=== PATIENT | male | born 1950 | race Caucasian/White ===

== ENCOUNTER 2017-10-18 08:28 | Emergency (ER) | payer OTHER, MEDICARE ==
[2017-10-18 08:38] VITALS: BP 131/85; PULSE 75; TEMP 98.2; BMI 32.9
--- NOTE | 2017-10-18 08:46 | PDOC ---
History of Present Illness - General Chief Complaint: Shortness of Breath Stated Complaint: SOB R/O PE Time Seen by Provider: 10/18/17 08:33 - History of Present Illness Initial Comments: 10/18/17 08:47 Chief complaint: Shortness of breath History of present illness: Patient complains of increased dyspnea on exertion over the past month. He is a patient of Dr. Stark, who referred him to the ER today for further evaluation after assessing his cardiac status is stable. He is concerned about an occult pulmonary embolus. Review of systems: Denies chest pain, abdominal pain, nausea, vomiting, diarrhea , fever/chills, cough, calf pain or swelling. Admits chronic hematuria from known renal carcinoma. Past medical history: Coronary artery disease, stents in 2008 and May 2017. Ablation for SVT subsequent to recent stent No prior DVT or pulmonary embolus. Probable renal cell carcinoma with hematuria, awaiting surgical treatment. Cannot undergo surgery until Plavix and aspirin can be discontinued 6 months after stent placement. Under the care of a urologist. Borderline diabetes. No known [place], CVA, TIA in the past. No recent angina or other chest pain. 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 Stable home and family Family history: Mother of CHF, father of lung cancer after smoking most of his life. 2 siblings without cardiac disease, cancer, or blood clots. Physical exam: Alert and oriented, well-developed well-nourished, no acute distress, cheerful and cooperative Afebrile, vital signs stable including normal respiratory rate and oxygen saturation of 98% on room air PERRLA, fundi benign, ENT clear Neck supple without bruit mass or nodes Lungs clear with full breath sounds throughout bilaterally. No wheezes rales or rhonchi CV S1 and S2 distant without murmur rub or gallop pulses full and symmetric no JVD or edema no bruits 80 and regular Abdomen soft nontender without mass or organomegaly. No bruits Extremities no CCE Skin clear, no rash, adequate turgor and wet mucous membranes Neurological intact. Gait stable and unimpaired Impression: Increased dyspnea on exertion, no chest pain, recent stent. Unlikely stent occlusion. Possible mild CHF. Possible pulmonary embolus. Plan: As requested by tar processing technician, CTA of the lungs, and further management depending on results. Remainder cardiac workup to be done by his tar processing technician as an outpatient. Past History - Past Medical History Allergies/Adverse Reactions: Allergies Allergy/AdvReac Type Severity Reaction Status Date / Time No Known Allergies Allergy Verified 10/18/17 08:29 Home Medications: Ambulatory Orders Aspirin [ASA -] 81 mg PO HS 10/18/17 Atorvastatin Ca [Lipitor] 20 mg PO HS 10/18/17 Clopidogrel Bisulfate [Clopidogrel] 75 mg PO HS 10/18/17 Losartan Potassium 25 mg PO HS 10/18/17 Metoprolol Succinate 12.5 mg PO HS 10/18/17 Tamsulosin HCl 0.4 mg PO HS 10/18/17 COPD: No Disorders: Yes (HEMATURIA) Other medical history: RENAL MASS - Surgical History Cardiac Surgery: Yes (2 STENTS, ABLATION) - Suicide/Smoking/Psychosocial Hx Smoking History: Former smoker Have you smoked in the past 12 months: No If you are a former smoker, when did you quit?: 2001 Information on smoking cessation initiated: No Hx Alcohol Use: No Drug/Substance Use Hx: No Substance Use Type: None *Physical Exam - Vital Signs Last Vital Signs Temp Pulse Resp BP Pulse Ox 98.2 F 75 20 131/85 98 10/18/17 08:29 10/18/17 08:29 10/18/17 08:29 10/18/17 08:29 10/18/17 08:29 ED Treatment Course - LABORATORY CBC & Chemistry Diagram: 10/18/17 08:51 10/18/17 08:51 Medical Decision Making - Medical Decision Making 10/18/17 11:41 CBC, chemistries, and cardiac enzymes without significant abnormalities. Chest x-ray negative Lungs CTA showed no evidence of pulmonary emboli Venous Doppler of the lower extremities negative. 10/18/17 11:42 10/18/17 13:20 Patient to return to tar processing technician for further evaluation. *DC/Admit/Observation/Transfer Diagnosis at time of Disposition: Dyspnea Qualifiers: Dyspnea type: dyspnea on exertion Qualified Code(s): R06.09 - Other forms of dyspnea - Discharge Dispostion Disposition: HOME Condition at time of disposition: Stable Admit: No - Referrals - Patient Instructions Printed Discharge Instructions: DI for Shortness of Breath Additional Instructions: See your tar processing technician for further diagnosis and treatment as directed. Return to the ER if you have worsening symptoms, or if you develop chest pain, lightheadedness, dizziness, nausea, sweating, or other serious symptoms. - Post Discharge Activity
[2017-10-18 09:30] LABS: BASO % 0.5 % (0-2.0); EOS % 4.9 % (0-4.5); HEMATOCRIT 43.3 % (35.4-49); HEMOGLOBIN 14.6 GM/dl (11.7-16.9); LYMPH % 31.8 % (8-40); MCH 28.2 pg (25.7-33.7); MCHC 33.7 g/dl (32.0-35.9); MEAN CELL VOLUME 83.8 fl (80-96); MEAN PLT VOLUME 9.4 fl (7.5-11.1); NEUT % 55.8 % (42.8-82.8); PLATELET COUNT 195 K/MM3 (134-434); RBC 5.17 M/mm3 (4.00-5.60); RDW 11.8 % (11.9-15.9); WHITE BLOOD COUNT 5.8 K/mm3 (4.0-10.8)
[2017-10-18 09:47] LABS: ALBUMIN 3.8 g/dl (3.5-5.0); ALK PHOS 84 U/L (32-92); ANION GAP 4 (8-16); BILIRUBIN,TOTAL 0.7 mg/dl (0.2-1.0); BLOOD UREA NITROGEN 15 mg/dl (7-18); CALCIUM 8.3 mg/dl (8.4-10.2); CHLORIDE 106 mmol/L (98-107); CO2 24 mmol/L (22-28); CREATININE 0.9 mg/dl (0.6-1.3); GLUCOSE,RANDOM 130 mg/dl (74-106); POTASSIUM 3.8 mmol/L (3.5-5.1); SGOT/AST 20 U/L (10-42); SGPT/ALT 19 U/L (10-40); SODIUM 134 mmol/L (136-145); TOT PROT 6.5 g/dl (6.4-8.3)
== END 2017-10-18 13:28 | disposition home or self-care (01) ==
LOC: FER 08:28
DX: R06.09 Other forms of dyspnea (principal); R31.9 Hematuria, unspecified; Z95.5 Presence of coronary angioplasty implant and graft; R73.03 Prediabetes; Z87.891 Personal history of nicotine dependence
CPT/HCPCS: 36415; 71046-TC-FY; 71275-TC; 80053; 82550; 84484; 85025; 85379; 93970-TC; 99282-25

== ENCOUNTER 2018-04-21 22:58 | Inpatient (IN) | payer OTHER, MEDICARE ==
--- NOTE | 2018-04-21 23:04 | PDOC ---
History of Present Illness - General History Source: Patient Exam Limitations: No Limitations - History of Present Illness Initial Comments: 04/21/18 23:50 The patient is a 67 year old male, with a significant PMH of coronary artery disease and borderline diabetes, who presents to the emergency department complaining of urinary retention that began tonight. The patient states he tried to urinate a couple of hours ago and noticed the presence of blood clots. He reports drinking water but still had difficulty in urinating accompanied with pain. The patient also reports he had a TURP surgery done one and half years ago by his urologist Dr. Sy Garcia. The patient denies chest pain, shortness of breath, headache and dizziness. Denies fever, chills, nausea, vomit, diarrhea and constipation. Denies urinary frequency. Allergies: NKDA Past surgical history: TURP, 2 stents and ablation Social history: Former smoker quit in 2001 PCP: Dr. Shultz <Santosh Márquez - Last Filed: 04/21/18 23:41> <Adele Chaudhry - Last Filed: 04/22/18 03:07> - General Chief Complaint: Urinary Problem Stated Complaint: URINARY PROBLEM Time Seen by Provider: 04/21/18 23:04 Past History <Santosh Márquez - Last Filed: 04/21/18 23:41> - Past Medical History COPD: No Disorders: Yes (HEMATURIA) - Surgical History Cardiac Surgery: Yes (2 STENTS, ABLATION) - Suicide/Smoking/Psychosocial Hx Smoking History: Former smoker Have you smoked in the past 12 months: No If you are a former smoker, when did you quit?: 2001 Hx Alcohol Use: No Drug/Substance Use Hx: No Substance Use Type: None <Adele Chaudhry - Last Filed: 04/22/18 03:07> - Past Medical History Allergies/Adverse Reactions: Allergies Allergy/AdvReac Type Severity Reaction Status Date / Time No Known Allergies Allergy Verified 10/18/17 08:29 Home Medications: Ambulatory Orders Aspirin [ASA -] 81 mg PO HS 10/18/17 Atorvastatin Ca [Lipitor] 20 mg PO HS 10/18/17 Clopidogrel Bisulfate [Clopidogrel] 75 mg PO HS 10/18/17 Losartan Potassium 25 mg PO HS 10/18/17 Metoprolol Succinate 12.5 mg PO HS 10/18/17 Tamsulosin HCl 0.4 mg PO HS 10/18/17 Ranolazine [Ranexa] 500 mg PO BID 04/22/18 Review of Systems - Review of Systems Able to Perform ROS?: Yes Comments:: 04/21/18 23:52 GENERAL/CONSTITUTIONAL: No fever or chills. No weakness. HEAD, EYES, EARS, NOSE AND THROAT: No change in vision. No ear pain or discharge. No sore throat. CARDIOVASCULAR: No chest pain or shortness of breath. RESPIRATORY: No cough, wheezing, or hemoptysis. GASTROINTESTINAL: No nausea, vomiting, diarrhea or constipation. GENITOURINARY: +Urinary retention. MUSCULOSKELETAL: No joint or muscle swelling or pain. No neck or back pain. SKIN: No rash NEUROLOGIC: No headache, vertigo, loss of consciousness, or change in strength/ sensation. ENDOCRINE: No increased thirst. No abnormal weight change. HEMATOLOGIC/LYMPHATIC: No anemia, easy bleeding, or history of blood clots. ALLERGIC/IMMUNOLOGIC: No hives or skin allergy. <Santosh Márquez - Last Filed: 04/21/18 23:41> *Physical Exam - Vital Signs Last Vital Signs Temp Pulse Resp BP Pulse Ox 98.2 F 119 H 18 144/77 98 04/21/18 23:04 04/21/18 23:04 04/21/18 23:04 04/21/18 23:04 04/21/18 23:04 - Physical Exam Comments: 04/21/18 23:52 GENERAL: Awake, alert, and fully oriented, in no acute distress HEAD: No signs of trauma EYES: PERRLA, EOMI, sclera anicteric, conjunctiva clear ENT: Auricles normal inspection, hearing grossly normal, nares patent, oropharynx clear without exudates. Moist mucosa NECK: Normal ROM, supple, no lymphadenopathy, JVD, or masses LUNGS: Breath sounds equal, clear to auscultation bilaterally. No wheezes, and no crackles HEART: Regular rate and rhythm, normal S1 and S2, no murmurs, rubs or gallops ABDOMEN: Soft, nontender, normoactive bowel sounds. No guarding, no rebound. No masses GI:+Bladder enlarged. +Blood at the urinary meatus EXTREMITIES: Normal range of motion, no edema. No clubbing or cyanosis. No cords, erythema, or tenderness NEUROLOGICAL: Cranial nerves II through XII grossly intact. Normal speech, normal gait SKIN: Warm, Dry, normal turgor, no rashes or lesions noted. <Santosh Márquez - Last Filed: 04/21/18 23:41> ED Treatment Course - LABORATORY CBC & Chemistry Diagram: 04/22/18 00:43 04/22/18 00:43 <Adele Chaudhry - Last Filed: 04/22/18 03:07> Medical Decision Making - Medical Decision Making 04/21/18 23:[address] Sy Garcia about patients case. <Santosh Márquez - Last Filed: 04/21/18 23:41> - Medical Decision Making 04/22/18 00:47 Initial tolentino cath 16fr. placed. Bloody urine 250ml returned. Bladder scan bedisde demonstrates 600ml urine in the bladder as well as a pocket of 300 ml urine I spoke to Dr. Sy Garcia, who recommends 22FR. cath. Cath placed, snall clots removed, however pt continues to have minimal flow of urine. I did a bedisde ultrasound that demonstrates large debris and catheter taking up one-third to half of the bladder volume. It is clear that I will be unable to clear out the clots with irrigation, as I introduced 500ml saline and was able to remove less 200ml saline/urine/blood. Pt will be admitted for continuous bladder irrigation. Pt will have ultrasound of the bladder done. I am re-paging Dr. Sy Garcia. Pt will be admitted to the hospitalist. 04/22/18 03:06 Patient Name: DEREK GEORGE THIS IS A PRELIMINARY REPORT FROM [facility] DATE OF SERVICE: 2018-04-22 00:31:05 IMAGES: 38 EXAM: Pelvic sonogram. Clinical indication: Hematuria with urinary retention. There are no prior studies available for comparison. Findings: The prostate is enlarged and extends into the base of the urinary bladder and measures 8.8 x 7.9 x 6.5 cm in diameter. The volume of the prostate is approximately 264 cm?. Within the urinary bladder there is heterogeneous echoes without obvious evidence of internal flow, which likely represent blood clots given the history of hematuria. The bladder volume is approximately 450 cc. Impression: 1. Enlarged prostate. 2. Heterogeneous echoes within the urinary bladder, likely blood products. THIS DOCUMENT HAS BEEN ELECTRONICALLY SIGNED Pt will be admitted to med/surg Observation bed; he will be taken to [facility], as that is where the urologist wants to see him in the AM. <Adele Chaudhry - Last Filed: 04/22/18 03:07> *DC/Admit/Observation/Transfer - Attestations Scribe Attestion: 04/21/18 23:52 Documentation prepared by Santosh Márquez, acting as medical unit secretary for Adele Chaudhry MD. <Santosh Márquez - Last Filed: 04/21/18 23:41> - Discharge Dispostion Decision to Admit order: Yes <Adele Chaudhry - Last Filed: 04/22/18 03:07> Diagnosis at time of Disposition: Hematuria, Urinary retention - Discharge Dispostion Condition at time of disposition: Guarded
[2018-04-22] MEDS ORDERED: morphine CARPU-JECT 4 MG/1 ML DISP.SYRIN IVPUSH ONE (00:38)
[2018-04-22] MEDS ORDERED: morphine SULFATE 4 MG/ML VIAL ONE ×2 (00:39→09:34)
[2018-04-22 01:15] LABS: BASO % 0.6 % (0-2.0); EOS % 2.3 % (0-4.5); HEMATOCRIT 31.4 % (35.4-49); HEMOGLOBIN 10.3 GM/dL (11.7-16.9); LYMPH % 15.2 % (8-40); MCH 23.7 pg (25.7-33.7); MCHC 32.8 g/dl (32.0-35.9); MEAN CELL VOLUME 72.1 fl (80-96); MEAN PLT VOLUME 8.9 fl (7.5-11.1); MONO % 5.8 % (3.8-10.2); NEUT % 76.1 % (42.8-82.8); PLATELET COUNT 203 K/MM3 (134-434); RBC 4.35 M/mm3 (4.00-5.60); RDW 15.7 % (11.9-15.9); WHITE BLOOD COUNT 9.8 K/mm3 (4.0-10.0)
[2018-04-22 01:50] LABS: ALBUMIN 3.2 g/dl (3.4-5.0); ALK PHOS 90 U/L (45-117); ANION GAP 6 MMOL/L (8-16); BILIRUBIN,TOTAL 0.2 mg/dL (0.2-1); BLOOD UREA NITROGEN 22 mg/dL (7-18); CALCIUM 7.9 mg/dL (8.5-10.1); CHLORIDE 110 mmol/L (98-107); CO2 24 mmol/L (21-32); CREATININE 1.2 mg/dL (0.55-1.3); GLUCOSE,RANDOM 132 mg/dL (74-106); POTASSIUM 4.3 mmol/L (3.5-5.1); SGOT/AST 14 U/L (15-37); SGPT/ALT 20 U/L (13-61); SODIUM 140 mmol/L (136-145); TOT PROT 6.4 g/dl (6.4-8.2)
[2018-04-22 02:13] LABS: INR 1.04 (0.83-1.09); PROTHROMBIN TIME (PATIENT) 11.7 SEC (9.7-13.0)
[2018-04-22 02:15] LABS: ACTIVATED PTT 27.9 SECONDS (25.2-36.5)
[2018-04-22] MEDS ORDERED: MORPHINE SULFATE 2 MG/ML VIAL IVPUSH ONE (02:26)
[2018-04-22 03:42] VITALS: BMI 35.4
--- NOTE | 2018-04-22 04:41 | PN ---
Teaching Attending Note Name of Resident: Amaya Parker ATTENDING PHYSICIAN STATEMENT I saw and evaluated the patient. I reviewed the resident's note and discussed the case with the resident. I agree with the resident's findings and plan as documented. SUBJECTIVE: Patient is a 67 year old man with a PMH of CAD (2 stents in 2008), ablation for ?SVT in 2009, HTN, recent removal of benign mass from right kidney and borderline DM who presented to [place] [facility] complaining of urinary retention that began yesterday and gross hematuria. Says he tried to urinate a couple of noticed the presence of blood clots. He reports drinking water but still had difficulty in urinating accompanied with pain. The patient also reports he had a TURP surgery done one and half years ago by his urologist Dr. Sy Garcia. Tolentino was passed and his bladder irrigated, but he had minimal return. However when the tolentino was removed at [facility] ER he made about 150 cc of bloody urine and felt some relief. Sonogram showed a large prostate and distended bladder full of clots. He is aspirin, plavix and flomax 0.8 mg daily. Has had intermittent hematuria in the past 1.5 years since the TURP, but has never had retention or need for hospitalization. The urologist wanted him transferred to [facility]. He denies chest pain, abdominal pain, shortness of breath, dizziness, chills, nausea or dysuria. 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 Says he played football and baseball and has had arthroscopic surgery of both knees and right shoulder. OBJECTIVE: Alert and in no acute distress Vital Signs Period Temp Pulse Resp BP Sys/Guzmán Pulse Ox Last 24 Hr 98.2 F-98.9 F 89-119 18-20 117-144/69-80 97-99 HEENT: No Jaundice, eye redness or discharge, PERRLA, EOMI. Normocephalic, atraumatic. External ears are normal and hearing is grossly intact. No nasal discharge. Neck: Supple, nontender. No palpable adenopathy or thyromegaly. No JVD Chest: Good effort. Clear to auscultation and percussion. Heart: Regular. No S3, rub or murmur Abdomen: Not distended, obese, soft, nontender and no HSM. No rebound or guarding. Normoactive bowel sounds. Ext: Peripheral pulses intact. No leg edema. Skin: Warm and dry. No petechiae, rash or ecchymosis. Neuro: Alert. Oriented x3. CN 2-12 grossly intact. Sensation grossly intact in all four extremities and DTR are symmetric. Home Medications Medication Instructions Recorded Aspirin [ASA -] 81 mg PO HS 10/18/17 Atorvastatin Ca [Lipitor] 20 mg PO HS 10/18/17 Clopidogrel Bisulfate [Clopidogrel] 75 mg PO HS 10/18/17 Losartan Potassium 25 mg PO HS 10/18/17 Metoprolol Succinate 12.5 mg PO HS 10/18/17 Tamsulosin HCl 0.4 mg PO HS 10/18/17 Ranolazine [Ranexa] 500 mg PO BID 04/22/18 Abnormal Lab Results 04/22/18 04/22/18 00:43 00:43 Hgb 10.3 L Hct 31.4 L MCV 72.1 L MCH 23.7 L Chloride 110 H Anion Gap 6 L BUN 22 H Random Glucose 132 H Calcium 7.9 L AST 14 L Albumin 3.2 L ASSESSMENT AND PLAN: 1. Urinary retention with gross hematuria - Likely due to his prostate disease. Need to rule out cancer. Get PSA, continue flomax and will be seen by urologist in the morning to start CBI. Will continue Plavix and asprin for now and monitor HCT closely. 2. Boderline DM - Check HbA1c. Implement sliding scale insulin regimen. Provide comprehensive diabetes care with patient teaching and counseling about the importance of euglycemia, eye care and foot care. 3. Low MCV Anemia - Likely due to recurrent "hematuria" over past 1.5 years. Need to rule out GI blood loss. Do basic anemia work up including serial stool guaiacs, reticulocyte count and iron studies. Would benefit from Procrit therapy once iron replete. Refer for outpatient colonoscopy. 4. Obesity - Will provide patient all the necessary assistance, counseling and positive reinforcement to facilitate weight loss. Consult palliative care specialist. 5. DVT prophylaxis - SCD, TEDS, early ambulation 6. Advance directives - Full code
--- NOTE | 2018-04-22 04:45 | HP ---
CHIEF COMPLAINT: acute urinary retention and urethral bleed x 1 day PCP: Lexii Galvin HISTORY OF PRESENT ILLNESS: Pt is a 67 yo M with PMHx of HTN, BPH, CAD s/p stents 2008, 2016, s/p cardiac ablation (for tachycardia over 240), TURP, presenting with a one day hx of acute urinary retention. Pt presented to [facility] after being in acute urinary retention that started around 3-4pm Monday prior to presentation . Urethral catheterization proved unsuccessful and was complicated by urethral bleeding with clots that further blocked the tolentino catheter. Attempts were made at manual irrigation to unblock the clots but this was also unsuccessful resulting in worsening pain and retention. US done showed 450ml of urine and after removal of the catheter pt was able to void up to 150mls. Pt was had intermittent urinary retention in the past that has resolved in less than a day. He takes 08mg of flomax and has been complaint. He is currently on dual antiplatelet therapy for his recent stent placement . No chest pain, no SOB , no syncope, palpitations. No fever or chills. He follows regularly with a urologist, last visit was a month ago ED contacted Dr Galvin that asked for pt to be transferred here for CBI. ER course was notable for: (1) tachycardia-119, 144/77 (2)H&H- 10.3/31.4 (3)pelvic US- nuclear chemistry technician's impression-Heavy bleeding enlarged prostate, bld clots/tissue scan seen within bladder. Unable to urinate. Prostate vol 263.8, Bladder Vol 445.35ml Recent Travel: PAST MEDICAL HISTORY: HTN, BPH, CAD s/p stents 2008, 2016, s/p cardiac ablation PAST SURGICAL HISTORY: TURP s/p cardiac stents 2008, 2016, s/p cardiac ablation MAss resection from R kidney January 01 2018 Bilateral herniorrhaphy arthroscopic knee surgery rotator cuff sx Social History: Lives alone, Smoking: Alcohol: Drugs: Family History: Allergies No Known Allergies Allergy (Verified 10/18/17 08:29) HOME MEDICATIONS: Home Medications Medication Instructions Recorded Aspirin [ASA -] 81 mg PO HS 10/18/17 Atorvastatin Ca [Lipitor] 20 mg PO HS 10/18/17 Clopidogrel Bisulfate [Clopidogrel] 75 mg PO HS 10/18/17 Losartan Potassium 25 mg PO HS 10/18/17 Metoprolol Succinate 12.5 mg PO HS 10/18/17 Tamsulosin HCl 0.4 mg PO HS 10/18/17 Ranolazine [Ranexa] 500 mg PO BID 04/22/18 REVIEW OF SYSTEMS CONSTITUTIONAL: Absent: fever, chills, diaphoresis, generalized weakness, malaise, loss of appetite, weight change HEENT: Absent: rhinorrhea, nasal congestion, throat pain, throat swelling, difficulty swallowing, mouth swelling, ear pain, eye pain, visual changes CARDIOVASCULAR: Absent: chest pain, syncope, palpitations, irregular heart rate, lightheadedness , peripheral edema RESPIRATORY: Absent: cough, shortness of breath, dyspnea with exertion, orthopnea, wheezing, stridor, hemoptysis GASTROINTESTINAL: Absent: abdominal pain, abdominal distension, nausea, vomiting, diarrhea, constipation, melena, hematochezia GENITOURINARY: Absent: dysuria, frequency, urgency, hesitancy, hematuria, flank pain, genital pain MUSCULOSKELETAL: Absent: myalgia, arthralgia, joint swelling, back pain, neck pain SKIN: Absent: rash, itching, pallor HEMATOLOGIC/IMMUNOLOGIC: Absent: easy bleeding, easy bruising, lymphadenopathy, frequent infections ENDOCRINE: Absent: unexplained weight gain, unexplained weight loss, heat intolerance, cold intolerance NEUROLOGIC: Absent: headache, focal weakness or paresthesias, dizziness, unsteady gait, seizure, mental status changes, bladder or bowel incontinence PSYCHIATRIC: Absent: anxiety, depression, suicidal or homicidal ideation, hallucinations. PHYSICAL EXAMINATION Vital Signs - 24 hr 04/21/18 04/22/18 04/22/18 23:04 02:04 03:22 Temperature 98.2 F 98.9 F 98.5 F Pulse Rate 119 H 95 H Pulse Rate [ 89 Radial] Respiratory 18 18 20 Rate Blood Pressure 144/77 142/80 Blood Pressure 117/69 [Arm] O2 Sat by Pulse 98 97 99 Oximetry (%) GENERAL: Awake, alert, and fully oriented, in no acute distress. HEAD: Normal with no signs of trauma. EYES: Pupils equal, round and reactive to light, extraocular movements intact, sclera anicteric, conjunctiva clear. No lid lag. EARS, NOSE, THROAT: Ears normal, nares patent, oropharynx clear without exudates. Moist mucous membranes. NECK: Normal range of motion, supple without lymphadenopathy, JVD, or masses. LUNGS: Breath sounds equal, clear to auscultation bilaterally. No wheezes, and no crackles. No accessory muscle use. HEART: Regular rate and rhythm, normal S1 and S2 without murmur, rub or gallop. ABDOMEN: Soft, mild suprapubic tenderness, normoactive bowel sounds, dullness to percussion in suprapubic area up to mid umbilicus MUSCULOSKELETAL: Normal range of motion at all joints. No bony deformities or tenderness. No CVA tenderness. LOWER EXTREMITIES: 2+ pulses, warm, well-perfused. No calf tenderness. No peripheral edema. NEUROLOGICAL: Cranial nerves II-XII intact. Normal speech. Normal gait. UG: Normal scrotum and testes. Minimal fresh blood in diaper, no new blood on urethral meatus. CBC, BMP 04/22/18 00:43 04/22/18 00:43 Laboratory Results - last 24 hr 04/22/18 04/22/18 04/22/18 00:43 00:43 00:43 WBC 9.8 RBC 4.35 Hgb 10.3 L Hct 31.4 L MCV 72.1 L MCH 23.7 L MCHC 32.8 RDW 15.7 Plt Count 203 MPV 8.9 Absolute Neuts (auto) 7.4 Neutrophils % 76.1 Lymphocytes % 15.2 Monocytes % 5.8 Eosinophils % 2.3 Basophils % 0.6 Nucleated RBC % 0 PT with INR 11.70 INR 1.04 PTT (Actin FS) 27.9 Sodium 140 Potassium 4.3 Chloride 110 H Carbon Dioxide 24 Anion Gap 6 L BUN 22 H Creatinine 1.2 Creat Clearance w eGFR > 60 Random Glucose 132 H Calcium 7.9 L Total Bilirubin 0.2 AST 14 L ALT 20 Alkaline Phosphatase 90 Total Protein 6.4 Albumin 3.2 L ASSESSMENT/PLAN: 7 yo M with PMHx of HTN, BPH, CAD s/p stents 2008, 2016, s/p cardiac ablation ( likely for a flutter) presenting with a one day hx of acute urinary retention and hematuria, transferred [facility] for CBI per Dr Sy Garcia Hematuria Likely traumatic in setting of grossly enlarged prostate Urology consult- Dr Galvin on case Pain mx tylenol For CBI NPO for now Follow CBC EKG Acute on chronic urinary retention TURP hx Chronic retention in past HTN, BPH, CAD s/p stents 2008, 2017, s/p cardiac ablation (likely for a flutter) Cont home meds FEN Monitor lytes Dispo: ED Obs Visit type - Emergency Visit Emergency Visit: Yes ED Registration Date: 04/22/18 Care time: The patient presented to the Emergency Department on the above date and was hospitalized for further evaluation of their emergent condition. - New Patient This patient is new to me today: Yes Date on this admission: 04/22/18 - Critical Care Critical Care patient: No Hospitalist Screening - Colonoscopy Questionnaire Colonoscopy Questionnaire: Colonoscopy Questionnaire - Patient: 50 - 75 years old and never had a screening colonoscopy: Yes History of colon or rectal polyps, or CA: Unknown History of IBD, Crohn's disease or UC: Unknown History of abdominal radiation therapy as a child: Unknown - Relative: 1 with colon or rectal CA, or polyps at age 60 or younger: Unknown Colon or rectal CA diagnosed at age 45 or younger: Unknown Multiple relatives with colon or rectal CA: Unknown - Outcome: Screening Result: Positive Screen
[2018-04-22 07:55] LABS: BASO % 0.6 % (0-2.0); EOS % 1.8 % (0-4.5); HEMATOCRIT 29.5 % (35.4-49); HEMOGLOBIN 9.4 GM/dL (11.7-16.9); LYMPH % 19.5 % (8-40); MCH 23.2 pg (25.7-33.7); MCHC 31.9 g/dl (32.0-35.9); MEAN CELL VOLUME 72.9 fl (80-96); MEAN PLT VOLUME 8.7 fl (7.5-11.1); MONO % 7.2 % (3.8-10.2); NEUT % 70.9 % (42.8-82.8); PLATELET COUNT 179 K/MM3 (134-434); RBC 4.05 M/mm3 (4.00-5.60); RDW 15.7 % (11.9-15.9); WHITE BLOOD COUNT 8.2 K/mm3 (4.0-10.0)
[2018-04-22 07:58] LABS: INR 1.07 (0.83-1.09); PROTHROMBIN TIME (PATIENT) 12.1 SEC (9.7-13.0)
[2018-04-22 08:00] LABS: ACTIVATED PTT 26.1 SECONDS (25.2-36.5)
--- NOTE | 2018-04-22 08:06 | PN ---
Progress Note, Physician Chief Complaint: Urinary retention History of Present Illness: NAD awaiting UA/UC Urology consult placed ER tried tolentino and 3 way catheter, both got blocked with blood clots - Current Medication List Current Medications: Active Medications Aspirin (Asa -) 81 mg PO HS DOUG Atorvastatin Calcium (Lipitor -) 20 mg PO HS DOUG Clopidogrel Bisulfate (Plavix -) 75 mg PO HS DUOG Losartan Potassium (Cozaar -) 25 mg PO HS DOUG Metoprolol Succinate (Toprol Xl -) 12.5 mg PO HS DOUG Tamsulosin HCl (Flomax -) 0.4 mg PO HS DOUG - Objective Vital Signs: Vital Signs Temperature 98.4 F 04/22/18 05:04 Pulse Rate 77 04/22/18 05:04 Respiratory Rate 20 04/22/18 05:04 Blood Pressure 155/78 04/22/18 05:04 O2 Sat by Pulse Oximetry (%) 99 04/22/18 05:04 Constitutional: Yes: Well Nourished, No Distress, Calm Cardiovascular: Yes: Regular Rate and Rhythm Respiratory: Yes: Regular Gastrointestinal: Yes: Normal Bowel Sounds, Soft Genitourinary: Yes: Bladder Distention Musculoskeletal: Yes: WNL Extremities: Yes: WNL Edema: No Peripheral Pulses WNL: Yes Neurological: Yes: Alert, Oriented Psychiatric: Yes: Alert, Oriented Labs: INR, PTT INR 1.04 (0.83-1.09) 04/22/18 00:43 Problem List - Problems (1) Urinary retention Assessment/Plan: -UA/UC pending -Tolentino insertion -bladder scanner showed retaining 500 cc of urine -Urology consult Code(s): R33.9 - RETENTION OF URINE, UNSPECIFIED (2) Anemia Assessment/Plan: -2/2 to hematuria -pt baseline is around 14 in 09/2017 -monitor trend -transfuse if Hg <8.0 -will check iron profile -Hold Plavix and asa until H/H stable Code(s): D64.9 - ANEMIA, UNSPECIFIED Assessment/Plan see problem list
[2018-04-22] MEDS ORDERED: ACETAMINOPHEN 325 MG TABLET (FP) PO PRN ×2 (08:09)
[2018-04-22] MEDS ORDERED: oxyCODONE HCL 5 MG TABLET PO PRN (08:09)
[2018-04-22] MEDS ORDERED: traMADol HCL 50 MG TABLET PO PRN (08:09)
[2018-04-22 08:37] LABS: ALBUMIN 3.2 g/dl (3.4-5.0); ALK PHOS 84 U/L (45-117); ANION GAP 8 MMOL/L (8-16); BILIRUBIN,TOTAL 0.3 mg/dL (0.2-1); BLOOD UREA NITROGEN 22 mg/dL (7-18); CALCIUM 8.2 mg/dL (8.5-10.1); CHLORIDE 110 mmol/L (98-107); CO2 24 mmol/L (21-32); CREATININE 1.1 mg/dL (0.55-1.3); GLUCOSE,RANDOM 141 mg/dL (74-106); POTASSIUM 4.5 mmol/L (3.5-5.1); SGOT/AST 10 U/L (15-37); SGPT/ALT 18 U/L (13-61); SODIUM 143 mmol/L (136-145)
[2018-04-22] MEDS ORDERED: LIDOCAINE HCL 2% JELLY 10 ML CARTRIDGE ONE (09:20)
[2018-04-22] MEDS ORDERED: morphine SULFATE 4 MG/ML VIAL IVPUSH ONE (09:45)
--- NOTE | 2018-04-22 10:03 | CON.GU ---
Consult Consult Specialty:: urology Referred by:: unruly Reason for Consultation:: gross hematuria with clot retention - History of Present Illness Chief Complaint: clot retention History of Present Illness: Patient is a 67 year old male with history of bph with gross hematuria. The patient has had multiple cystoscopies with no evidence of bladder tumor. The source of the bleeding has been the prostate. The patient has a history of a renal tumor and is s/p partial nephrectomy. The patient presented last night at [facility] and was in clot retention. 300cc of clots were evacuated according to the ER. The patient was transferred to [facility] over the evening without a catheter. He voided only 100cc and is in severe distress. PE VSS; afeb abd- no cvat'; bladder distended and palpable discussed risks and benefits and treatment options x25 minutes procedure note bladder evacuated with catheter; irrigated until clear; 3 way tolentino to CBI started imp bph clot retentin gross hematuria plan restart plavix and ASA in AM continue flomax start levaquin continue CBI 60 minutes devoted to patient care - Alcohol/Substance Use Hx Alcohol Use: Yes (SOCIAL) - Smoking History Smoking history: Former smoker Have you smoked in the past 12 months: No If you are a former smoker, when did you quit?: 2001 Home Medications - Allergies Allergies/Adverse Reactions: Allergies Allergy/AdvReac Type Severity Reaction Status Date / Time No Known Allergies Allergy Verified 10/18/17 08:29 - Home Medications Home Medications: Ambulatory Orders Aspirin [ASA -] 81 mg PO HS 10/18/17 Atorvastatin Ca [Lipitor] 20 mg PO HS 10/18/17 Clopidogrel Bisulfate [Clopidogrel] 75 mg PO HS 10/18/17 Losartan Potassium 25 mg PO HS 10/18/17 Metoprolol Succinate 12.5 mg PO HS 10/18/17 Tamsulosin HCl 0.4 mg PO HS 10/18/17 Ranolazine [Ranexa] 500 mg PO BID 04/22/18 Physical Exam- Vital Signs: Vital Signs Temperature 98.4 F 04/22/18 05:04 Pulse Rate 77 04/22/18 05:04 Respiratory Rate 20 04/22/18 05:04 Blood Pressure 155/78 04/22/18 05:04 O2 Sat by Pulse Oximetry (%) 99 04/22/18 05:04 Labs: CBC, BMP 04/22/18 06:40 04/22/18 06:40
[2018-04-22 16:30] LABS: URINE APPEARANCE CLEAR; URINE BILIRUBIN NEGATIVE (<2.0 mg/dL); URINE COLOR COLORLESS; URINE GLUCOSE (UA) NEGATIVE (NEGATIVE); URINE KETONE NEGATIVE (NEGATIVE); URINE LEUK ESTERASE NEGATIVE (NEGATIVE); URINE NITRITE NEGATIVE (NEGATIVE); URINE PROTEIN NEGATIVE (NEGATIVE); URINE UROBILINOGEN NEGATIVE mg/dL (0.2-1.0)
--- NOTE | 2018-04-22 17:08 | EKG ---
Test Reason : Blood Pressure : / mmHG Vent. Rate : 090 BPM Atrial Rate : 090 BPM P-R Int : 150 ms QRS Dur : 090 ms QT Int : 366 ms P-R-T Axes : 051 -28 020 degrees QTc Int : 447 ms NORMAL SINUS RHYTHM NORMAL ECG NO PREVIOUS ECGS AVAILABLE Confirmed by MD Joaquín, Henrik ([id number]) on 04/22/2018 5:08:01 PM Referred By: MD ADAIR Confirmed By:Henrik Yanes MD
[2018-04-22] MEDS ORDERED: ASPIRIN 81 MG CHEWABLE TABLETS PO SCH (22:00)
[2018-04-22] MEDS ORDERED: metoPROLOL SUCCINATE 25 MG TAB.SR.24H (FP) PO SCH (22:00)
[2018-04-22] MEDS ORDERED: CLOPIDOGREL BISULFATE 75 MG TABLET (FP) PO SCH (22:00)
[2018-04-22] MEDS ORDERED: DOCUSATE SODIUM 100 MG CAPSULE (FP) PO SCH (22:00)
[2018-04-22] MEDS ORDERED: ATORVASTATIN CA 20 MG TABLET (FP) PO SCH (22:00)
[2018-04-22] MEDS ORDERED: LOSARTAN POTASSIUM 25 MG TABLET PO SCH (22:00)
[2018-04-22] MEDS ORDERED: TAMSULOSIN HCL 0.4 MG CAP.ER.24H (FP) PO SCH ×2 (22:00)
[2018-04-23 08:06] LABS: SERUM IRON SATURATION 4 % (15-55); TOTAL IRON BINDING CAPACITY 368 ug/dL (250-450); UIBC 355 ug/dL (111-343)
--- NOTE | 2018-04-23 09:22 | CON.CARD ---
Cardiology Consult (text) - Consultation Consultation Note: Cardiology Consult Dictated 1. Gross hematuria 2. CAD s/p PCI- last 05/2017 -recent repeat cath last month, patent stents 3. PSVT s/p ablation REC: 1. Cont TBI as per Urology 2. If cysto required, no cardiac contraindications. At this point 10 months post PCI, Plavix may be temporarily d/c'd for 5 days prior while continuing ASA 81mg. Will follow
[2018-04-23] MEDS ORDERED: ASPIRIN 81 MG CHEWABLE TABLETS PO SCH (10:00)
[2018-04-23] MEDS ORDERED: RANOLAZINE E.R. 500 MG TABLET (FP) PO SCH (10:00)
--- NOTE | 2018-04-23 11:28 | CONS ---
DATE OF CONSULTATION: 04/23/2018 CARDIOLOGY CONSULTATION REQUESTED BY: Rosalia Shultz MD REASON FOR CONSULTATION: Perioperative management. HISTORY OF PRESENT ILLNESS: Patient is a 67-year-old male with chronic hypertension, diastolic dysfunction, microvascular dysfunction, and coronary artery disease, status post PCI after a non-STEMI in May 2017, at which time he also underwent ablation of paroxysmal supraventricular tachycardia. Patient has a history of benign prostatic hyperplasia and a renal tumor that was resected earlier this year and turned out to be benign. He has had had issues with intermittent hematuria and now presents with gross hematuria requiring Mi and TBI. CARDIAC REVIEW OF SYSTEMS: Significant for chronic exertional dyspnea for which she underwent a repeat coronary angiogram approximately 1 month ago showing patient stents. He underwent a pulmonary evaluation which was unremarkable at which time he was started on Ranexa empirically from microvascular vascular dysfunction with significant improvement in his exertional tolerance and diminished exertional dyspnea. He denies palpitations, syncope, PND, orthopnea, or other symptoms of congestive heart failure. PAST MEDICAL HISTORY: As above. ALLERGIES: He has no known drug allergies. CURRENT MEDICATIONS: Include Tylenol 650 p.o. q.6 p.r.n., aspirin 81 mg daily, atorvastatin 20 mg daily, clopidogrel 75 mg p.o. daily, docusate 300 mg p.o. q.h.s., levofloxacin 500 mg p.o. daily, losartan 25 mg p.o. q.h.s., metoprolol succinate 12.5 mg p.o. q.d., oxycodone 5 mg p.o. q.4 p.r.n., ranolazine 500 mg p.o. b.i.d., tamsulosin 0.8 mg p.o. q.h.s., and tramadol 50 mg p.o. q.8 p.r.n. FAMILY HISTORY: Noncontributory. SOCIAL HISTORY: He is a former smoker. Lives alone in [place]. Retired. PHYSICAL EXAMINATION: Vital Signs: Afebrile, temperature 98.1, pulse 65 in sinus rhythm, blood pressure 144/70, O2 of 99 on room air. Eyes: He is anicteric. Neck: There are no carotid bruits. No JVD. Heart: S1, 2, regular, no murmurs. Chest: Clear. Abdomen: Soft, nontender. Extremities: No edema. His EKG showed normal sinus rhythm with no acute ST change. LABS: CBC significant for hematocrit of 29.5 otherwise normal. INR 1.07. Basic metabolic panel: Sodium 143, potassium 4.5, creatinine 1.1. LFTs were normal. TSH is normal. Urinalysis shows 3+ blood, 2 white cells, 74 red blood cells, urine culture is pending. IMPRESSION: 1. Gross hematuria. 2. Coronary artery disease status post percutaneous coronary intervention after [id number] myocardial infarction in May 2017, recent catheterization nonobstructive, chronic microvascular dysfunction. RECOMMENDATIONS: 1. There are no absolute cardiac contraindications to proceeding with cystoscopy if necessary. At this point, now 10 months status post PCI, it would be reasonable to discontinue Plavix 5 days prior to the procedure while continuing aspirin at 81 mg daily. Would not interrupt aspirin therapy as there remains a low risk of stent thrombosis. Will follow. Thank you for the consultation. TERESA URBINA M.D. [id number]
--- NOTE | 2018-04-23 12:10 | DS ---
Physical Examination Vital Signs: Vital Signs Temperature 98.5 F 04/23/18 09:51 Pulse Rate 82 04/23/18 09:51 Respiratory Rate 18 04/23/18 09:51 Blood Pressure 114/59 L 04/23/18 09:51 O2 Sat by Pulse Oximetry (%) 99 04/23/18 05:00 Constitutional: Yes: Calm Neck: Yes: Trachea Midline Cardiovascular: Yes: Regular Rate and Rhythm, S1, S2 Respiratory: Yes: CTA Bilaterally Gastrointestinal: Yes: Normal Bowel Sounds, Soft Labs: CBC, BMP 04/22/18 06:40 04/22/18 06:40 Discharge Summary Reason For Visit: HEMATURIA/RETENTION Current Active Problems Anemia (Acute) Hematuria (Acute) Urinary retention (Acute) Hospital Course: CHIEF COMPLAINT: acute urinary retention and urethral bleed x 1 day PCP: Lexii Mcginnis HISTORY OF PRESENT ILLNESS: Pt is a 67 yo M with PMHx of HTN, BPH, CAD s/p stents 2008, 2016, s/p cardiac ablation (for tachycardia over 240), TURP, presenting with a one day hx of acute urinary retention. Pt presented to [facility] after being in acute urinary retention that started around 3-4pm Monday prior to presentation . Urethral catheterization proved unsuccessful and was complicated by urethral bleeding with clots that further blocked the tolentino catheter. Attempts were made at manual irrigation to unblock the clots but this was also unsuccessful resulting in worsening pain and retention. US done showed 450ml of urine and after removal of the catheter pt was able to void up to 150mls. Pt was had intermittent urinary retention in the past that has resolved in less than a day. He takes 08mg of flomax and has been complaint. He is currently on dual antiplatelet therapy for his recent stent placement . No chest pain, no SOB , no syncope, palpitations. No fever or chills. He follows regularly with a urologist, last visit was a month ago ED contacted Dr Mcginnis that asked for pt to be transferred here for CBI. ER course was notable for: (1) tachycardia-119, 144/77 (2)H&H- 10.3/31.4 (3)pelvic US- mechanical maintenance technician's impression-Heavy bleeding enlarged prostate, bld clots/tissue scan seen within bladder. Unable to urinate. Prostate vol 263.8, Bladder Vol 445.35ml in hospital: startred on CBI- clear urine no more hematuria h/h ok iron deficient venofer seen by cardiology plan to go home Condition: Guarded - Instructions Referrals: Rosalia Shultz MD [Primary Care Provider] - Disposition: HOME - Home Medications Comprehensive Discharge Medication List: Ambulatory Orders Aspirin [ASA -] 81 mg PO HS 10/18/17 Atorvastatin Ca [Lipitor] 20 mg PO HS 10/18/17 Clopidogrel Bisulfate [Clopidogrel] 75 mg PO HS 10/18/17 Losartan Potassium 25 mg PO HS 10/18/17 Metoprolol Succinate 12.5 mg PO HS 10/18/17 Tamsulosin HCl 0.4 mg PO HS 10/18/17 Ranolazine [Ranexa] 500 mg PO BID 04/22/18
[2018-04-23] MEDS ORDERED: IRON SUCROSE INJECTION 100 MG in SODIUM CHLORIDE 95 ML IVPB ONE (13:15)
[2018-04-23 14:59] VITALS: TEMP 98.5
[2018-04-23 15:49] VITALS: BP 133/77; PULSE 78
== END 2018-04-23 18:40 | disposition home or self-care (01) | DRG 726 ==
LOC: FER 22:58 → J7W 04-22 02:24 → OBSVTOIN 04-22 04:38
PROVIDERS: ADMIT Family Medicine; ATTEND Family Medicine
PROC: 3E1K78Z Irrigation of Genitourinary Tract using Irrigating Substance, Via Natural or Artificial Opening (ICD-10-PCS; principal; 2018-04-22)
DX: N40.1 Benign prostatic hyperplasia with lower urinary tract symptoms (principal); I47.1 Supraventricular tachycardia; R33.8 Other retention of urine; R31.0 Gross hematuria; R73.03 Prediabetes; I10 Essential (primary) hypertension; D64.9 Anemia, unspecified; Z90.5 Acquired absence of kidney; Z95.5 Presence of coronary angioplasty implant and graft; Z87.891 Personal history of nicotine dependence; E66.9 Obesity, unspecified; Z68.35 Body mass index [BMI] 35.0-35.9, adult
CPT/HCPCS: 36415; 76856-TC; 80053; 81003; 81015; 82607; 82728; 82746; 83540; 83550; 84439; 84443; 85025; 85610; 85730; 87086; 93005; 96365; 99285-25; G0378; J1756

== ENCOUNTER 2018-05-17 05:50 | Observation (INO) | payer OTHER, MEDICARE ==
--- NOTE | 2018-05-17 06:38 | PDOC ---
History of Present Illness - General Chief Complaint: Blood Transfusion Stated Complaint: LAB VARIANCE Time Seen by Provider: 05/17/18 06:38 - History of Present Illness Initial Comments: 05/17/18 06:38 CHIEF COMPLAINT: "i am here for a blood transufion." HISTORY OF PRESENT ILLNESS: 67 yo M with PMH of HTN, prediabetes, BPH, (s/p TURP 2016), CAD (s/p stents 2008 &2017) presents to ED "for a blood transfusion " as directed by his maintenance parts technician Dr. Evans due to Hg of 8.3 and Hct of 27 that was checked at [facility] yesterday. Patient states he has been having CHILDS, palpitations "when going up the stairs," and "if I stand up quickly I get lightheaded." Patient states he has been bleeding from his prostate "for about a year" and over the course of the past 5 days has lost "a lot of blood." Patient's PCP is Dr. Shultz. No recent travel or sick contacts. PAST MEDICAL HISTORY: HTN, BPH, CAD FAMILY HISTORY: Denies SOCIAL HISTORY: Denies tobacco, alcohol, illicit drug use. SURGICAL HISTORY: TURP, cardiac stents ALLERGIES: No known drug allergies REVIEW OF SYSTEMS General/Constitutional: Denies fever or chills. Denies weakness, weight change. HEENT: Denies change in vision. Denies ear pain or discharge. Denies sore throat. Cardiovascular: Palpitations. Denies chest pain. Respiratory: CHILDS. Denies cough, wheezing, or hemoptysis. Gastrointestinal: Denies nausea, vomiting, diarrhea or constipation. Denies rectal bleeding. Genitourinary: "Bleeding from my prostate for a year." Musculoskeletal: Denies joint or muscle swelling or pain. Denies neck or back pain. Skin: Denies rash or easy bruising. Neurologic: Lightheadedness. Denies headache, vertigo, loss of consciousness, or loss of sensation. PHYSICAL EXAM General Appearance: Well-appearing, appropriately dressed. No apparent distress , no intoxication. HEENT: EOMI, PERRLA, normal ENT inspection, normal voice, TMs normal, pharynx normal. No conjunctival pallor. No photophobia, scleral icterus. Neck: Supple. Trachea midline. No tenderness, rigidity, carotid bruit, stridor , lymphadenopathy, or thyromegaly. Respiratory/Chest: Lungs CTAB. No shortness of breath, chest tenderness, respiratory distress, accessory muscle use. No crackles, rales, rhonchi, stridor , wheezing, dullness Cardiovascular: RRR. S1, S2. No JVD, murmur, bradycardia, tachycardia. Gastrointestinal/Abdominal: Normal bowel sounds. Abdomen soft, non-distended. No tenderness or rebound tenderness. No organomegaly, pulsatile mass, guarding , hernia, hepatomegaly, splenomegaly. Musculoskeletal/Extremities: Normal inspection. FROM of all extremities, normal capillary refill. Pelvis Stable. No CVA tenderness. No tenderness to extremities, pedal edema, swelling, erythema or deformity. Integumentary: Pale. Dry, warm. No cyanosis, erythema, jaundice or rash Neurologic: real estate processor II-XII intact. Fully oriented, alert. Appropriate mood/affect. Motor strength 5/5. No appreciable EOM palsy, facial droop or sensory deficit. Past History - Past Medical History Allergies/Adverse Reactions: Allergies Allergy/AdvReac Type Severity Reaction Status Date / Time No Known Allergies Allergy Verified 05/17/18 06:05 Home Medications: Ambulatory Orders Aspirin [ASA -] 81 mg PO HS 10/18/17 Atorvastatin Ca [Lipitor] 20 mg PO HS 10/18/17 Clopidogrel Bisulfate [Clopidogrel] 75 mg PO HS 10/18/17 Losartan Potassium 25 mg PO HS 10/18/17 Metoprolol Succinate 12.5 mg PO HS 10/18/17 Tamsulosin HCl 0.4 mg PO HS 10/18/17 Ranolazine [Ranexa] 500 mg PO BID 04/22/18 Cardiac Disorders: Yes (2 stents) COPD: No GI Disorders: Yes (ulcerative colitis) Disorders: (BPH, TURP,HEMATURIA) HTN: Yes Hypercholesterolemia: Yes - Surgical History Abdominal Surgery: Yes (ABD HERNIA- 2 SURGERIES) Cardiac Surgery: Yes (2 STENTS, ABLATION) Orthopedic Surgery: Yes (JACI KNEE SX) - Suicide/Smoking/Psychosocial Hx Smoking History: Former smoker Have you smoked in the past 12 months: No If you are a former smoker, when did you quit?: 2001 Information on smoking cessation initiated: No Hx Alcohol Use: Yes (SOCIAL) Drug/Substance Use Hx: No Substance Use Type: None Hx Substance Use Treatment: No *Physical Exam - Vital Signs Last Vital Signs Temp Pulse Resp BP Pulse Ox 98.3 F 70 18 142/67 100 05/17/18 05:57 05/17/18 05:57 05/17/18 05:57 05/17/18 05:57 05/17/18 05:57 ED Treatment Course - LABORATORY CBC & Chemistry Diagram: 05/17/18 16:00 05/17/18 07:30 Medical Decision Making - Medical Decision Making 05/17/18 06:40 67 yo M with PMH of HTN, BPH (s/p TURP), CAD (s/p stents 2008 &2016) presents to ED "for a blood transfusion" as directed by his maintenance parts technician Dr. Evans due to Hg of 8.3 and Hct of 27 that was checked at [facility] yesterday. -labs, T&S 05/17/18 06:51 Case discussed in detail with oncoming emergency provider including history, physical exam and ancillary studies. In brief, this patient is being seen in the ED for a chief complaint of: I have completed the initial assessment interview note and have ordered the following labs: basic labs, coags, T&S I have reviewed the following results: none Pending results: all labs Please call the PCP: Lexii Plan for disposition as follows: obs for [facility]BC Oncoming [place] Uribe has assumed care for the patient and will complete the evaluation and treatment. *DC/Admit/Observation/Transfer Diagnosis at time of Disposition: Symptomatic anemia - Discharge Dispostion Condition at time of disposition: Guarded - Referrals - Patient Instructions - Post Discharge Activity
--- NOTE | 2018-05-17 07:23 | PDOC ---
*Physical Exam - Vital Signs Last Vital Signs Temp Pulse Resp BP Pulse Ox 98.3 F 70 18 142/67 100 05/17/18 05:57 05/17/18 05:57 05/17/18 05:57 05/17/18 05:57 05/17/18 05:57 ED Treatment Course - LABORATORY CBC & Chemistry Diagram: 05/17/18 07:30 05/17/18 07:30 Medical Decision Making - Medical Decision Making 05/17/18 07:22 Signout received from DHIRAJ Aceves. Briefly, this is a 67-year-old male with CAD s/p stents (most recently in 2017, on ASA 81mg daily, holding Plavix for planned prostate surgery on Monday) referred by his can capper for outpatient hgb 8.3. He endorses some CHILDS/orthostatic symptoms. He denies chest pain. He has been having gwyn blood in the urine. I explained to him that we would like to rule out bleeding from the GI tract, however, he refuses rectal exam by me or by another provider. 05/17/18 09:[address] Shultz - will place in observation. *DC/Admit/Observation/Transfer Diagnosis at time of Disposition: Symptomatic anemia - Discharge Dispostion Condition at time of disposition: Guarded Decision to Admit order: Yes - Referrals Referrals: Rosalia Shultz MD [Primary Care Provider] - - Patient Instructions - Post Discharge Activity
[2018-05-17 07:50] LABS: BASO % 0.7 % (0-2.0); EOS % 10.6 % (0-4.5); HEMATOCRIT 28.1 % (35.4-49); HEMOGLOBIN 8.5 GM/dL (11.7-16.9); MCHC 30.3 g/dl (32.0-35.9); MEAN CELL VOLUME 72.5 fl (80-96); MEAN PLT VOLUME 8.6 fl (7.5-11.1); MONO % 8.3 % (3.8-10.2); NEUT % 47.4 % (42.8-82.8); PLATELET COUNT 195 K/MM3 (134-434); RBC 3.88 M/mm3 (4.00-5.60); RDW 15.8 % (11.9-15.9); WHITE BLOOD COUNT 5.2 K/mm3 (4.0-10.0)
[2018-05-17 08:11] LABS: ALBUMIN 3.3 g/dl (3.4-5.0); ALK PHOS 87 U/L (45-117); ANION GAP 6 MMOL/L (8-16); BILIRUBIN,TOTAL 0.2 mg/dL (0.2-1); BLOOD UREA NITROGEN 19 mg/dL (7-18); CALCIUM 8.3 mg/dL (8.5-10.1); CHLORIDE 110 mmol/L (98-107); CO2 24 mmol/L (21-32); CREATININE 1.1 mg/dL (0.55-1.3); GLUCOSE,RANDOM 150 mg/dL (74-106); POTASSIUM 4.2 mmol/L (3.5-5.1); SGOT/AST 20 U/L (15-37); SGPT/ALT 27 U/L (13-61); SODIUM 141 mmol/L (136-145); TOT PROT 6.4 g/dl (6.4-8.2)
[2018-05-17 08:23] LABS: INR 0.88 (0.83-1.09); PROTHROMBIN TIME (PATIENT) 10.4 SEC (9.7-13.0)
--- NOTE | 2018-05-17 09:11 | CON.CARD ---
Consult Consult Specialty:: Cardiology Referred by:: Dr. Shultz Reason for Consultation:: CHILDS - History of Present Illness Chief Complaint: Shortness of breath History of Present Illness: 67M with CAD s/p NSTEMI 05/2017 w/ PCI ([place]) and PSVT s/p ablation, recurrent and ongoing bleeding scheduled for cysto next week. Patient reports over one week of urethral bleeding, passing clots. Came to office Monday with exertional fatigue and CHILDS, appeared pale. Sent for CBC, showing Hb 8.3 down from 10.3 in March. Patient has been on ASA/Plavix therapy - History Source History Provided By: Patient Limitations to Obtaining History: No Limitations - Past Medical History Cardio/Vascular: Yes: CAD, HTN, Hyperlipdemia, [place] Renal/: Yes: BPH, Hematuria, Other (Benign tumor resected from kidney several months ago) Infectious Disease: No: AIDS, C-Diff, Herpes Zoster, HIV, MRSA, STD's, Tuberculosis, VREF, Other Psych: No: Addictions, Anxiety, Bipolar, Depression, Panic, Psychosis, Schizophrenia, Other Musculoskeletal: No: Bursitis, Chronic low back pain, Hemiparesis, Hemiplegia, Osteoarthritis, Paraplegia, Other Rheumatology: No: Fibromyalgia, Gout, Lupus, Rheumatoid Arthritis, Sarcoidosis, Vasculitis, Other ENT: No: Allergic Rhinitis, Sinusitis, Other Dermatology: No: Basal Cell, Cellulitis, Eczema, Melanoma, Psoriasis, Squamous Cell, Other - Past Surgical History Past Surgical History: Yes: Nephrectomy - Alcohol/Substance Use Hx Alcohol Use: Yes (SOCIAL) - Smoking History Smoking history: Former smoker Have you smoked in the past 12 months: No If you are a former smoker, when did you quit?: 2001 - Social History Usual Living Arrangement: Alone History of Recent Travel: No Home Medications - Allergies Allergies/Adverse Reactions: Allergies Allergy/AdvReac Type Severity Reaction Status Date / Time No Known Allergies Allergy Verified 05/17/18 06:05 - Home Medications Home Medications: Ambulatory Orders Aspirin [ASA -] 81 mg PO HS 10/18/17 Atorvastatin Ca [Lipitor] 20 mg PO HS 10/18/17 Clopidogrel Bisulfate [Clopidogrel] 75 mg PO HS 10/18/17 Losartan Potassium 25 mg PO HS 10/18/17 Metoprolol Succinate 12.5 mg PO HS 10/18/17 Tamsulosin HCl 0.4 mg PO HS 10/18/17 Ranolazine [Ranexa] 500 mg PO BID 04/22/18 Family Disease History - Family Disease History Family History: Unremarkable (non contributory) Review of Systems Findings/Remarks: see HPI - Review of Systems Constitutional: reports: No Symptoms Eyes: reports: No Symptoms HENT: reports: No Symptoms Neck: reports: No Symptoms Cardiovascular: reports: Shortness of Breath Respiratory: reports: Exercise Intolerance Gastrointestinal: denies: No Symptoms, Abdominal Pain, Bloating, Constipation, Diarrhea, Dysphagia, Indigestion, Melena, Nausea, Rectal Bleeding, Vomiting, Vomiting Blood, Other Genitourinary: reports: Hematuria Breasts: denies: No Symptoms Reported, See HPI, Breast Implants, Discharge from Nipple, Lumps, Pain, Skin Changes, Other Musculoskeletal: denies: No Symptoms, Back Pain, Crepitus, Decreased ROM, Extremity Pain, Joint Pain, Joint Swelling, Muscle Pain, Muscle Cramps, Muscle Weakness, Other Integumentary: denies: No Symptoms, Blister, Bruising, Change in Color, Eczema, Erythema, Incision, Lesions, Lump, Pallor, Pruritis, Rash, Wound, Other Neurological: denies: No Symptoms, Change in LOC, Change in Speech, Confusion, Dizziness, Headache, Incoordination, Numbness, Parasthesia, Pre-Existing Deficit , Seizure, Syncope, Tremors, Unsteady Gait, Weakness, Other Endocrine: denies: No Symptoms, Excessive Sweating, Flushing, Increased Hunger, Increased Thirst, Intolerance to Cold, Intolerance to Heat, Unexplained Weight Gain, Unexplained Weight Loss, Other Psychiatric: reports: No Symptoms - Risk Factors Known Risk Factors: Yes: Hypercholesterolemia, Hypertension, Other (Known CAD) Vital Signs: Vital Signs Temperature 98.3 F 05/17/18 05:57 Pulse Rate 70 05/17/18 05:57 Respiratory Rate 18 05/17/18 05:57 Blood Pressure 142/67 05/17/18 05:57 O2 Sat by Pulse Oximetry (%) 100 05/17/18 05:57 Constitutional: Yes: No Distress, Calm, Pallor Eyes: Yes: Conjunctiva Clear Respiratory: Yes: CTA Bilaterally Cardiovascular: Yes: Regular Rate and Rhythm JVD: No Carotid Bruit: No PMI: Non-Displaced Heart Sounds: Yes: S1, S2 (RRR, no M/R/G) Edema: No Neurological: Yes: Alert, Oriented - Other Data Labs, Other Data: CBC, BMP 05/17/18 07:30 05/17/18 07:30 INR, PTT INR 0.88 (0.83-1.09) 05/17/18 07:30 Troponin, BNP 05/17/18 07:30 Troponin I < 0.02 Troponin, BNP 05/17/18 07:30 Troponin I < 0.02 in office yesterday, NSR with no acute changes. Ejection Fraction %: LVEF > or = 40 % Problem List - Problems (1) Coronary artery disease Code(s): I25.10 - ATHSCL HEART DISEASE OF [place] CORONARY ARTERY W/O ANG PCTRS Qualifiers: Coronary Disease-Associated Artery/Lesion type: [place] artery Associated angina: with stable angina (2) Anemia Code(s): D64.9 - ANEMIA, UNSPECIFIED Qualifiers: Anemia type: other cause Other causes of anemia: acute posthemorrhagic Qualified Code(s): D62 - Acute posthemorrhagic anemia (3) Dyspnea Code(s): R06.00 - DYSPNEA, UNSPECIFIED Qualifiers: Dyspnea type: dyspnea on exertion Qualified Code(s): R06.09 - Other forms of dyspnea (4) Hematuria Code(s): R31.9 - HEMATURIA, UNSPECIFIED Qualifiers: Hematuria type: gross Qualified Code(s): R31.0 - Gross hematuria Assessment/Plan IMP: Symptomatic anemia due to acute blood loss secondary to ongoing gross hematuria Dyspnea on exertion, secondary to anemia CAD s/p PCI REC: 1. Agree with PRBCS in setting of sx anemia, acute blood loss in background of CAD 2. evaluation. 3. Guaiac stool to assure no other source. 4. Plavix on hold for scheduled cysto next week, continue ASA 81mg Plan d/w PMD Dr. Shultz. Will follow.
[2018-05-17] MEDS ORDERED: metoPROLOL SUCCINATE 25 MG TAB.SR.24H (FP) PO SCH ×2 (09:53→22:00)
--- NOTE | 2018-05-17 09:54 | HP ---
Admitting History and Physical - Primary Care Physician PCP: Rosalia Shultz - Admission Chief Complaint: WEAKNESS/BLOOD LOSS HEMATUREA History of Present Illness: 67 yo M with PMH of HTN, prediabetes, BPH, (s/p TURP 2016), CAD (s/p stents 2008 &2016) presents to ED "for a blood transfusion" as directed by his anesthesiology faculty Dr. Evans due to Hg of 8.3 and Hct of 27 that was checked at [facility] yesterday. Patient states he has been having CHILDS, palpitations "when going up the stairs," and "if I stand up quickly I get lightheaded." Patient states he has been bleeding from his prostate "for about a year" and over the course of the past 5 days has lost "a lot of blood." History Source: Patient, Medical Record Limitations to Obtaining History: No Limitations - Past Medical History Cardiovascular: Yes: CAD, HTN, Hyperlipdemia, CA Renal/: Yes: BPH, Hematuria, Other (Benign tumor resected from kidney several months ago) Infectious Disease: No: AIDS, C-Diff, Herpes Zoster, HIV, MRSA, STD's, Tuberculosis, VREF, Other Psych: No: Addictions, Anxiety, Bipolar, Depression, Panic, Psychosis, Schizophrenia, Other Musculoskeletal: No: Bursitis, Chronic low back pain, Hemiparesis, Hemiplegia, Osteoarthritis, Paraplegia, Other Rheumatology: No: Fibromyalgia, Gout, Lupus, Rheumatoid Arthritis, Sarcoidosis, Vasculitis, Other ENT: No: Allergic Rhinitis, Sinusitis, Other Dermatology: No: Basal Cell, Cellulitis, Eczema, Melanoma, Psoriasis, Squamous Cell, Other - Past Surgical History Past Surgical History: Yes: Nephrectomy - Smoking History Smoking history: Former smoker Have you smoked in the past 12 months: No If you are a former smoker, when did you quit?: 2001 - Alcohol/Substance Use Hx Alcohol Use: Yes (SOCIAL) - Social History History of Recent Travel: No Home Medications - Allergies Allergies/Adverse Reactions: Allergies Allergy/AdvReac Type Severity Reaction Status Date / Time No Known Allergies Allergy Verified 05/17/18 06:05 - Home Medications Home Medications: Ambulatory Orders Aspirin [ASA -] 81 mg PO HS 10/18/17 Atorvastatin Ca [Lipitor] 20 mg PO HS 10/18/17 Clopidogrel Bisulfate [Clopidogrel] 75 mg PO HS 10/18/17 Losartan Potassium 25 mg PO HS 10/18/17 Metoprolol Succinate 12.5 mg PO HS 10/18/17 Tamsulosin HCl 0.4 mg PO HS 10/18/17 Ranolazine [Ranexa] 500 mg PO BID 04/22/18 Review of Systems - Review of Systems Constitutional: reports: Weakness Eyes: reports: No Symptoms HENT: reports: No Symptoms Cardiovascular: reports: Shortness of Breath Respiratory: reports: SOB Gastrointestinal: reports: No Symptoms Genitourinary: reports: Hematuria Musculoskeletal: reports: No Symptoms Integumentary: reports: No Symptoms Neurological: reports: No Symptoms Endocrine: reports: No Symptoms Hematology/Lymphatic: reports: No Symptoms Psychiatric: denies: No Symptoms Physical Examination Vital Signs: Vital Signs Temperature 98.3 F 05/17/18 05:57 Pulse Rate 70 05/17/18 05:57 Respiratory Rate 18 05/17/18 05:57 Blood Pressure 142/67 05/17/18 05:57 O2 Sat by Pulse Oximetry (%) 100 05/17/18 05:57 Constitutional: Yes: Mild Distress Eyes: Yes: WNL HENT: Yes: WNL Neck: Yes: WNL Cardiovascular: Yes: WNL Respiratory: Yes: WNL Gastrointestinal: Yes: WNL Renal/: Yes: Hematuria Musculoskeletal: Yes: Muscle Weakness Edema: No Integumentary: Yes: WNL Wound/Incision: Yes: Clean/Dry Neurological: Yes: WNL ...Motor Strength: WNL Psychiatric: Yes: WNL Labs: CBC, BMP 05/17/18 07:30 05/17/18 07:30 Problem List - Problems (1) Coronary artery disease Code(s): I25.10 - ATHSCL HEART DISEASE OF [place] CORONARY ARTERY W/O ANG PCTRS Qualifiers: Coronary Disease-Associated Artery/Lesion type: [place] artery Associated angina: with stable angina (2) Symptomatic anemia Code(s): D64.9 - ANEMIA, UNSPECIFIED (3) Anemia Code(s): D64.9 - ANEMIA, UNSPECIFIED Qualifiers: Anemia type: other cause Other causes of anemia: acute posthemorrhagic Qualified Code(s): D62 - Acute posthemorrhagic anemia (4) Dyspnea Code(s): R06.00 - DYSPNEA, UNSPECIFIED Qualifiers: Dyspnea type: dyspnea on exertion Qualified Code(s): R06.09 - Other forms of dyspnea (5) Hematuria Code(s): R31.9 - HEMATURIA, UNSPECIFIED Qualifiers: Hematuria type: gross Qualified Code(s): R31.0 - Gross hematuria Assessment/Plan TRANSFUSE PRBC CHECK LEVELS ANEMIA LIKELY FROM HEMATUREA SCHEDULED FOR SURGERY NEXT WEEK PLAVIX AND ASA ON HOLD HEME CONSULT RULE OUT NEOPLASM? CHECK LEVELS IN AM OF H/H
[2018-05-17] MEDS ORDERED: CLOPIDOGREL BISULFATE 75 MG TABLET (FP) PO SCH ×2 (10:00→22:00)
[2018-05-17] MEDS ORDERED: LOSARTAN POTASSIUM 25 MG TABLET PO SCH ×2 (10:00→22:00)
[2018-05-17] MEDS ORDERED: RANOLAZINE E.R. 500 MG TABLET (FP) PO SCH (10:00)
[2018-05-17] MEDS ORDERED: ASPIRIN COATED 81 MG TABLET.EC PO SCH ×2 (10:00→22:00)
[2018-05-17 11:15] LABS: ANISOCYTOSIS 2+; MACROCYTOSIS 0; PLATELET ESTIMATE NORMAL
--- NOTE | 2018-05-17 11:46 | EKG ---
Test Reason : Blood Pressure : / mmHG Vent. Rate : 066 BPM Atrial Rate : 066 BPM P-R Int : 158 ms QRS Dur : 090 ms QT Int : 388 ms P-R-T Axes : 047 -10 031 degrees QTc Int : 406 ms POOR DATA QUALITY, INTERPRETATION MAY BE ADVERSELY AFFECTED NORMAL SINUS RHYTHM NORMAL ECG WHEN COMPARED WITH ECG OF 22-APR-2018 02:25, NO SIGNIFICANT CHANGE WAS FOUND Confirmed by HARISH MOLINA, TALIB ([id number]) on 05/17/2018 11:46:32 AM Referred By: Confirmed By:TALIB MOREIRA MD
[2018-05-17 13:50] VITALS: BMI 34.8
--- NOTE | 2018-05-17 13:58 | CONSULT ---
Consultation: REQUESTING PROVIDER: Dr. Shultz. CONSULT REQUEST: We have been asked to medically evaluate this patient for anemia HISTORY OF PRESENT ILLNESS: 67 yo M with PMHx of HTN, BPH, CAD s/p stents 2008, 2016, s/p cardiac ablation ( for tachycardia over 240), TURP, presenting with hematuria . He was seen by his rn immunology in [facility] and was found to have hemoglobin on 8.5 with HCT 27. He states that this all started 5 days prior he stated having hematuria on and off. He then saw his rn immunology yesterday and brady the CBC. He has been having this issue off and on for approx. a year after he had his TURP done. He is scheduled to have urologic procedure on Monday and was seeing cardiology for clearance. He endorses shortness of breath on exertion. Denies CP, SMITH, abdominal pain, nausea, vomiting , fever or chills. PAST MEDICAL HISTORY: HTN, BPH, CAD s/p stents 2008, 2016, s/p cardiac ablation PAST SURGICAL HISTORY: TURP s/p cardiac stents 2008, 2016, s/p cardiac ablation Mass resection from R kidney January 01 2018 Bilateral herniorrhaphy arthroscopic knee surgery rotator cuff sx Social History: Lives alone, Smoking: former smoker quit in 2001 Alcohol: social Drugs: denies Family History: Father (smoker on Lung ca), Mother of CHF and younger brother @ 55 of heart disease. Allergies:NKDA REVIEW OF SYSTEMS: CONSTITUTIONAL: Absent: fever, chills, diaphoresis, generalized weakness, malaise, loss of appetite, weight change HEENT: Absent: rhinorrhea, nasal congestion, throat pain, throat swelling, difficulty swallowing, mouth swelling, ear pain, eye pain, visual changes CARDIOVASCULAR: Absent: chest pain, syncope, palpitations, irregular heart rate, lightheadedness , peripheral edema RESPIRATORY: shortness of breath, dyspnea with exertion Absent: cough,, orthopnea, wheezing, stridor, hemoptysis GASTROINTESTINAL: Absent: abdominal pain, abdominal distension, nausea, vomiting, diarrhea, constipation, melena, hematochezia GENITOURINARY: Absent: dysuria, frequency, urgency, hesitancy, hematuria, flank pain, genital pain MUSCULOSKELETAL: Absent: myalgia, arthralgia, joint swelling, back pain, neck pain SKIN: Absent: rash, itching, pallor HEMATOLOGIC/IMMUNOLOGIC: Absent: easy bleeding, easy bruising, lymphadenopathy, frequent infections ENDOCRINE: Absent: unexplained weight gain, unexplained weight loss, heat intolerance, cold intolerance NEUROLOGIC: Absent: headache, focal weakness or paresthesias, dizziness, unsteady gait, seizure, mental status changes, bladder or bowel incontinence PSYCHIATRIC: Absent: anxiety, depression, suicidal or homicidal ideation, hallucinations. PHYSICAL EXAMINATION Vital Signs - 24 hr 05/17/18 05/17/18 05:57 11:20 Temperature 98.3 F 98.4 F Pulse Rate 70 Pulse Rate [ 62 Right] Respiratory 18 18 Rate Blood Pressure 142/67 Blood Pressure 119/69 [Left Arm] O2 Sat by Pulse 100 100 Oximetry (%) GENERAL: AAOx3, NAD HEAD: NCAT EYES: PERRLA, EOMI, sclera anicteric, conjunctiva clear. No lid lag. EARS, NOSE, THROAT: moist mucous membranes. NECK: Supple without lymphadenopathy, JVD, or masses. LUNGS: CTAB. No wheezes, and no crackles. No accessory muscle use. HEART: RRR, normal S1 and S2 , no m/g/r. ABDOMEN: Soft, NTND,NABS, no guarding, no rebound, no masses. No organomegally. MUSCULOSKELETAL: Normal range of motion at all joints. No bony deformities or tenderness. No CVA tenderness. UPPER EXTREMITIES: 2+ pulses, warm, well-perfused. No cyanosis. No clubbing. No peripheral edema. LOWER EXTREMITIES: 2+ pulses, warm, well-perfused. No calf tenderness. No peripheral edema. NEUROLOGICAL: Cranial nerves II-XII intact. Normal speech. gait not observed. PSYCHIATRIC: Cooperative. Good eye contact. Appropriate mood and affect. SKIN: Warm, dry, normal turgor, no rashes or lesions noted. Laboratory Results - last 24 hr 05/17/18 05/17/18 05/17/18 07:30 07:30 07:30 WBC 5.2 RBC 3.88 L Hgb 8.5 L Hct 28.1 L MCV 72.5 L MCH 22.0 L MCHC 30.3 L RDW 15.8 Plt Count 195 MPV 8.6 Absolute Neuts (auto) 2.5 Neutrophils % 47.4 D Lymphocytes % 33.0 D Monocytes % 8.3 Eosinophils % 10.6 H D Basophils % 0.7 Nucleated RBC % 0 Hypochromia 1+ Platelet Estimate Normal Polychromasia 1+ Poikilocytosis 0 Anisocytosis 2+ Microcytosis 2+ Macrocytosis 0 PT with INR 10.40 INR 0.88 PTT (Actin FS) 29.0 Sodium 141 Potassium 4.2 Chloride 110 H Carbon Dioxide 24 Anion Gap 6 L BUN 19 H Creatinine 1.1 Creat Clearance w eGFR > 60 Random Glucose 150 H Hemoglobin A1c % Calcium 8.3 L Total Bilirubin 0.2 AST 20 ALT 27 Alkaline Phosphatase 87 Troponin I < 0.02 Total Protein 6.4 Albumin 3.3 L Blood Type Antibody Screen Crossmatch 05/17/18 05/17/18 05/17/18 07:30 09:19 11:00 WBC RBC Hgb Hct MCV MCH MCHC RDW Plt Count MPV Absolute Neuts (auto) Neutrophils % Lymphocytes % Monocytes % Eosinophils % Basophils % Nucleated RBC % Hypochromia Platelet Estimate Polychromasia Poikilocytosis Anisocytosis Microcytosis Macrocytosis PT with INR INR PTT (Actin FS) Sodium Potassium Chloride Carbon Dioxide Anion Gap BUN Creatinine Creat Clearance w eGFR Random Glucose Hemoglobin A1c % 6.0 Calcium Total Bilirubin AST ALT Alkaline Phosphatase Troponin I Total Protein Albumin Blood Type O POSITIVE O POSITIVE Antibody Screen Negative Crossmatch See Detail Active Medications Generic Name Dose Route Start Last Admin Trade Name Freq PRN Reason Stop Dose Admin Aspirin 81 mg 05/17/18 22:00 Ecotrin - PO HS DOUG Atorvastatin Calcium 20 mg 05/17/18 22:00 Lipitor - PO HS DOUG Losartan Potassium 25 mg 05/17/18 22:00 Cozaar - PO HS DOUG Metoprolol Succinate 12.5 mg 05/17/18 22:00 Toprol Xl - PO HS DOUG Ranolazine 500 mg 05/17/18 10:00 Ranexa - PO BID DOUG Tamsulosin HCl 0.4 mg 05/17/18 22:00 Flomax - PO HS [facility] ASSESSMENT/PLAN: 67 yo M with PMHx of HTN, BPH, CAD s/p stents 2008, 2017, s/p cardiac ablation ( for tachycardia over 240), TURP, presenting for blood transfusion. Dispo: We will continue to follow the patient. Thank you for this consultative opportunity. Problem List - Problems (1) Symptomatic anemia Assessment/Plan: most likely 2/2 to acute blood loss from hematuria * Microcytosis points to a component of ACD vs. iron def. * Ideally Iron studies should have been sent prior to transfusion. * with cardiac history transfusion threshold in Hgb < 8 (2) Coronary artery disease (3) Hematuria
[2018-05-17 16:50] LABS: BASO % 0.4 % (0-2.0); EOS % 10.5 % (0-4.5); HEMATOCRIT 29.1 % (35.4-49); HEMOGLOBIN 9.2 GM/dL (11.7-16.9); LYMPH % 26.7 % (8-40); MCHC 31.5 g/dl (32.0-35.9); MEAN CELL VOLUME 73.1 fl (80-96); MEAN PLT VOLUME 8.9 fl (7.5-11.1); MONO % 9.1 % (3.8-10.2); NEUT % 53.3 % (42.8-82.8); PLATELET COUNT 206 K/MM3 (134-434); RBC 3.98 M/mm3 (4.00-5.60); RDW 17.4 % (11.9-15.9); WHITE BLOOD COUNT 5.5 K/mm3 (4.0-10.0)
[2018-05-17] MEDS: RANOLAZINE E.R. 500 MG TABLET (FP) PO SCH (17:38)
--- NOTE | 2018-05-17 19:21 | CONSULT ---
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 Evans . Reports hematuria/clot retention. Has had intermittent hematuria for the past 1 year. PAST MEDICAL HISTORY: HTN, BPH, CAD FAMILY HISTORY: Denies SOCIAL HISTORY: tobacco, alcohol, illicit drug use. SURGICAL HISTORY: TURP, cardiac stents ALLERGIES: No known drug allergies Allergies/Adverse Reactions: Allergies Allergy/AdvReac Type Severity Reaction Status Date / Time No Known Allergies Allergy Verified 05/17/18 06:05 Home Medications: Ambulatory Orders Aspirin [ASA -] 81 mg PO HS 10/18/17 Atorvastatin Ca [Lipitor] 20 mg PO HS 10/18/17 Clopidogrel Bisulfate [Clopidogrel] 75 mg PO HS 10/18/17 Losartan Potassium 25 mg PO HS 10/18/17 Metoprolol Succinate 12.5 mg PO HS 10/18/17 Tamsulosin HCl 0.4 mg PO HS 10/18/17 Ranolazine [Ranexa] 500 mg PO BID 04/22/18 PMH Cardiac Disorders: Yes (2 stents) GI Disorders: Yes (ulcerative colitis) Disorders: (BPH, TURP,HEMATURIA) HTN: Yes Hypercholesterolemia: Yes - Surgical History Abdominal Surgery: Yes (ABD HERNIA- 2 SURGERIES) Cardiac Surgery: Yes (2 STENTS, ABLATION) Orthopedic Surgery: Yes (JACI KNEE SX) - Suicide/Smoking/Psychosocial Hx Smoking History: Former smoker Have you smoked in the past 12 months: No If you are a former smoker, when did you quit?: 2001 Information on smoking cessation initiated: No Hx Alcohol Use: Yes (SOCIAL) - Vital Signs Last Vital Signs Temp Pulse Resp BP Pulse Ox 98.3 F 70 18 142/67 100 05/17/18 05:57 05/17/18 05:57 05/17/18 05:57 05/17/18 05:57 05/17/18 05:57 Cor: RSR, No murmurs, No gallops Lungs: Clear to P&A Abd: Soft, Normal bowel sounds, No organomegaly Ext:No significant edema Skin: No rashes, Integument intact A/P 67 yo M with PMH of HTN, BPH (s/p TURP), CAD (s/p stents 2008 &2016) presents to ED for anemia,hematuria, clot retention h/o partial right nrphtrectomy for renal cortical cyst/papillary adenoma' HAd been on ASA/plavix for coronary stents.Plavix on hold will cosnult urologist Dr. zhou will need gi follow up as well ---reports colonoscopy/EGD 2 yrs. back c/p PRBCS with improvement in hemoglobin
[2018-05-17] MEDS ORDERED: ATORVASTATIN CA 20 MG TABLET (FP) PO SCH (22:00)
[2018-05-17] MEDS ORDERED: TAMSULOSIN HCL 0.4 MG CAP PO SCH (22:00)
[2018-05-18 07:49] LABS: HEMATOCRIT 32.5 % (35.4-49); MCH 22.5 pg (25.7-33.7); MCHC 30.9 g/dl (32.0-35.9); MEAN PLT VOLUME 8.9 fl (7.5-11.1); PLATELET COUNT 220 K/MM3 (134-434); RBC 4.46 M/mm3 (4.00-5.60); WHITE BLOOD COUNT 6.1 K/mm3 (4.0-10.0)
--- NOTE | 2018-05-18 08:40 | CONSULT ---
Consult - text type - Consultation Consultation Note: CC: anemia with coronary symptoms with persistent gross hematuria s/p clot retention HPI: Patient with history of RCC s/p partial nephrectomy with persistent hematuria from prostatic fossa. Patient is currently on ASA and off plavix. Patient was scheduled for a TURP with vaporization to correct the hematuria. PE vss; afeb abd-soft, nontender/ no CVAT gentialia- normal phallus and testes rectal-3+ irregular prostate imp history of gross hematuria from chronic inflammation of prostate CAD on ASA plan patient will be rescheduled for his surgery after one week off of ASA 25 minutes devoted to patient care
--- NOTE | 2018-05-18 08:40 | PN ---
Progress Note, Physician Chief Complaint: transfused, appropriate increase in H/H No further bleeding Ambulating and feeling well. No CHILDS. - Current Medication List Current Medications: Active Medications Aspirin (Ecotrin -) 81 mg PO [facility] Last Admin: 05/17/18 21:48 Dose: 81 mg Atorvastatin Calcium (Lipitor -) 20 mg PO [facility] Last Admin: 05/17/18 21:48 Dose: 20 mg Losartan Potassium (Cozaar -) 25 mg PO [facility] Last Admin: 05/17/18 21:47 Dose: 25 mg Metoprolol Succinate (Toprol Xl -) 12.5 mg PO [facility] Last Admin: 05/17/18 21:48 Dose: 12.5 mg Ranolazine ([facility]exa -) [facility] [place] [place] Last Admin: 05/17/18 17:38 Dose: 500 mg Tamsulosin HCl (Flomax -) 0.4 mg PO [facility] Last Admin: 05/17/18 21:48 Dose: 0.4 mg - Objective Vital Signs: Vital Signs Temperature 97.8 F 05/18/18 06:03 Pulse Rate 64 05/18/18 06:03 Respiratory Rate 18 05/18/18 06:03 Blood Pressure 136/72 05/18/18 06:03 O2 Sat by Pulse Oximetry (%) 98 05/18/18 01:00 Constitutional: Yes: No Distress, Calm Eyes: Yes: Conjunctiva Clear Cardiovascular: Yes: Regular Rate and Rhythm Respiratory: Yes: CTA Bilaterally Gastrointestinal: Yes: Soft Edema: No Neurological: Yes: Alert, Oriented ...Motor Strength: WNL Labs: CBC, BMP 05/18/18 06:00 INR, PTT INR 0.88 (0.83-1.09) 05/17/18 07:30 Laboratory Tests 05/17/18 05/17/18 05/18/18 07:30 07:30 06:00 WBC 5.2 6.1 Hgb 8.5 L 10.0 L Hct 28.1 L Plt Count 195 220 Sodium 141 Potassium 4.2 BUN 19 H Creatinine 1.1 Random Glucose 150 H Calcium 8.3 L Alkaline Phosphatase 87 Troponin I < 0.02 Problem List - Problems (1) Coronary artery disease Code(s): I25.10 - ATHSCL HEART DISEASE OF [place] CORONARY ARTERY W/O ANG PCTRS Qualifiers: Coronary Disease-Associated Artery/Lesion type: [place] artery Associated angina: with stable angina (2) Anemia Code(s): D64.9 - ANEMIA, UNSPECIFIED Qualifiers: Anemia type: other cause Other causes of anemia: acute posthemorrhagic Qualified Code(s): D62 - Acute posthemorrhagic anemia (3) Dyspnea Code(s): R06.00 - DYSPNEA, UNSPECIFIED Qualifiers: Dyspnea type: dyspnea on exertion Qualified Code(s): R06.09 - Other forms of dyspnea (4) Hematuria Code(s): R31.9 - HEMATURIA, UNSPECIFIED Qualifiers: Hematuria type: gross Qualified Code(s): R31.0 - Gross hematuria Assessment/Plan IMP: Symptomatic anemia due to acute blood loss secondary to ongoing gross hematuria Dyspnea on exertion, secondary to anemia CAD s/p PCI REC: 1. Appropriate increase in H/H s/p PRBCs. No further blood loss. Symptoms resolved. 2. evaluation ongoing. 3. Guaiac stool to assure no other source. 4. Plavix on hold for scheduled cysto next week, continue ASA 81mg
[2018-05-18 08:55] LABS: ALBUMIN 3.4 g/dl (3.4-5.0); ALK PHOS 87 U/L (45-117); ANION GAP 6 MMOL/L (8-16); BILIRUBIN,TOTAL 0.4 mg/dL (0.2-1); BLOOD UREA NITROGEN 17 mg/dL (7-18); CALCIUM 8.5 mg/dL (8.5-10.1); CHLORIDE 108 mmol/L (98-107); CHOLESTEROL 129 mg/dL (50-200); CO2 28 mmol/L (21-32); CREATININE 1.2 mg/dL (0.55-1.3); GLUCOSE,RANDOM 116 mg/dL (74-106); HDL CHOLESTEROL 45 mg/dL (40-60); POTASSIUM 4.2 mmol/L (3.5-5.1); SGOT/AST 15 U/L (15-37); SGPT/ALT 28 U/L (13-61); SODIUM 141 mmol/L (136-145); TOT PROT 6.8 g/dl (6.4-8.2); TRIGLYCERIDES 133 mg/dL (0-150)
[2018-05-18] MEDS: RANOLAZINE E.R. 500 MG TABLET (FP) PO SCH (08:59)
--- NOTE | 2018-05-18 14:40 | DS ---
Physical Examination Vital Signs: Vital Signs Temperature 98.5 F 05/18/18 10:00 Pulse Rate 66 05/18/18 10:00 Respiratory Rate 18 05/18/18 10:00 Blood Pressure 121/69 05/18/18 10:00 O2 Sat by Pulse Oximetry (%) 98 05/18/18 09:00 Constitutional: Yes: No Distress Eyes: Yes: WNL HENT: Yes: WNL Neck: Yes: WNL Cardiovascular: Yes: WNL Respiratory: Yes: WNL Gastrointestinal: Yes: WNL Renal/: Yes: WNL Musculoskeletal: Yes: WNL Extremities: Yes: WNL Edema: No Peripheral Pulses WNL: Yes Integumentary: Yes: WNL Wound/Incision: Yes: Clean/Dry Neurological: Yes: WNL ...Motor Strength: WNL Psychiatric: Yes: WNL Labs: CBC, BMP 05/18/18 06:00 05/18/18 06:00 Discharge Summary Reason For Visit: ANEMIA, DYSPNEA Current Active Problems Coronary artery disease (Acute) Symptomatic anemia (Acute) Procedures: Principal: TRANSFUSED PRBC Hospital Course: TRANSFUSED PRBC FOR HEMATUREA, SCHEDULED OUTPATIENT FOR CYSTOSCOPY/PROSTATE SURGERY Condition: Guarded - Instructions Diet, Activity, Other Instructions: SURGERY WITH UROLOGY MONDAY STOP PLAVIX Referrals: Rosalia Shultz MD [Primary Care Provider] - Disposition: HOME - Home Medications Comprehensive Discharge Medication List: Ambulatory Orders Aspirin [ASA -] 81 mg PO HS 10/18/17 Atorvastatin Ca [Lipitor] 20 mg PO HS 10/18/17 Losartan Potassium 25 mg PO HS 10/18/17 Metoprolol Succinate 12.5 mg PO HS 10/18/17 Tamsulosin HCl 0.4 mg PO HS 10/18/17 Ranolazine [Ranexa] 500 mg PO BID 04/22/18
[2018-05-18 15:09] VITALS: BP 122/72; PULSE 69; TEMP 98.2
[2018-05-19 08:06] LABS: SERUM IRON SATURATION 4 % (15-55); TOTAL IRON BINDING CAPACITY 405 ug/dL (250-450); UIBC 387 ug/dL (111-343)
--- NOTE | 2018-05-21 12:49 | OP ---
Operative Note - Note: Operative Date: 05/21/18 Pre-Operative Diagnosis: bph with bleeding Operation: transurethral vaporization of the prostate Findings: edematous/friable prostate Post-Operative Diagnosis: Same as Pre-op Surgeon: Robert Murrieta Anesthesia: General Drains & Tubes with Location: [address]
== END 2018-05-18 15:10 | disposition home or self-care (01) ==
LOC: JER 05:50 → JERBED 09:42 → J5S 13:16 → J7W 05-18 00:08
PROVIDERS: ADMIT Family Medicine; ATTEND Family Medicine
PROC: 30233N1 Transfusion of Nonautologous Red Blood Cells into Peripheral Vein, Percutaneous Approach (ICD-10-PCS; principal; 2018-05-17)
DX: D62 Acute posthemorrhagic anemia (principal); I10 Essential (primary) hypertension; I25.10 Atherosclerotic heart disease of native coronary artery without angina pectoris; R06.00 Dyspnea, unspecified; R31.9 Hematuria, unspecified; N40.0 Benign prostatic hyperplasia without lower urinary tract symptoms; R73.03 Prediabetes; Z95.5 Presence of coronary angioplasty implant and graft; Z87.891 Personal history of nicotine dependence; Z79.82 Long term (current) use of aspirin
CPT/HCPCS: 36415; 36430; 80053; 80061; 82378; 82607; 82728; 82747; 82784; 83036; 83540; 83550; 83721; 84155; 84165; 84439; 84443; 84484; 85014; 85025; 85027; 85610; 85730; 86301; 86334; 86850; 86900; 86901; 86922; 93005; 93010; 99282-25; G0378; P9038; P9058

== ENCOUNTER 2018-05-21 07:28 | Day surgery (SDC) | payer OTHER, MEDICARE ==
[2018-05-18 15:34] VITALS: BMI 34.8
[2018-05-21] MEDS ORDERED: ALBUTEROL SO4 8 GM HFA INHALER IH ONE (08:50)
[2018-05-21] MEDS ORDERED: MIDAZOLAM HCL 2 MG/2 ML SINGLE DOSE VIAL ONE ×2 (08:50)
[2018-05-21] MEDS ORDERED: ROCURONIUM BROMIDE 50 MG/5 ML VIAL ONE (08:51)
[2018-05-21] MEDS ORDERED: PROPOFOL 20 ML ONE (08:51)
[2018-05-21] MEDS ORDERED: ePHEDrine SULFATE 50 MG/1 ML AMPULE ONE (09:18)
[2018-05-21] MEDS ORDERED: LIDOCAINE HCL/PF 2% SDV 5ML VIAL ONE (09:45)
[2018-05-21] MEDS ORDERED: LIDOCAINE HCL 2% JELLY (5 ML/TUBE) ONE (09:45)
[2018-05-21] MEDS ORDERED: ETOMIDATE 20 MG/10 ML AMPUL IVPUSH ONE (09:45)
[2018-05-21] MEDS ORDERED: SODIUM CHLORIDE 0.9% P/F 10 ML VIAL IJ ONE (09:45)
[2018-05-21] MEDS ORDERED: DEXAMETHASONE SOD PHOSPHATE 4 MG/1 ML VIAL ONE (09:45)
[2018-05-21] MEDS ORDERED: GLYCOPYRROLATE 0.2 MG/1 ML VIAL ONE (10:18)
[2018-05-21] MEDS ORDERED: NEOSTIGMINE METHYLSULFATE 0.5 MG/1 ML - 10 ML MDV ONE (10:18)
[2018-05-21] MEDS ORDERED: PROMETHAZINE HCL 25 MG/1 ML VIAL IVPUSH PRN (10:41)
[2018-05-21] MEDS ORDERED: oxyCODONE HCL 5 MG TABLET PO PRN (10:41)
[2018-05-21] MEDS ORDERED: ONDANSETRON 4 MG/2 ML VIAL IVPUSH PRN (10:41)
[2018-05-21] MEDS ORDERED: LACTATED RINGERS SOLUTION 1,000 ML IV SCH (10:45)
--- NOTE | 2018-05-21 12:51 | OP ---
Operative Note - Note: Operative Date: 05/21/18 Pre-Operative Diagnosis: bph with chronic hemorrhagic prostatitis Operation: transurethral vaporization of the prostate Findings: edematous/friable prostate Post-Operative Diagnosis: Same as Pre-op Surgeon: Robert Murrieta Anesthesia: General Drains & Tubes with Location: [address]
[2018-05-21 13:06] VITALS: BP 133/66; PULSE 76; TEMP 97.8
--- NOTE | 2018-05-21 19:55 | OP ---
DATE OF OPERATION: 05/21/2018 PREOPERATIVE DIAGNOSIS: Benign prostatic hypertrophy with chronic hemorrhagic prostatitis. POSTOPERATIVE DIAGNOSIS: Benign prostatic hypertrophy with chronic hemorrhagic prostatitis. PROCEDURE: Transurethral vaporization of the prostate. ATTENDING: Jason Ferrer MD ANESTHESIA: General. DESCRIPTION OF OPERATION: Patient was brought in the operating room, placed in supine position on the operating room table. The patient was given preoperative antibiotics, and anesthesia was initiated. Patient was then placed in the dorsal lithotomy position and prepped and draped in the usual sterile manner. The patient has a longstanding history of cardiac disease and is status post a recent stent placement. The patient is on multiple blood thinners. Currently, the patient is just taking a baby aspirin. The patient has gone into clot retention within the last month. The patient understands all risks and benefits associated with this procedure. The patient undergoes a vaporization of the prostate extending from the verumontanum to the bladder neck in a 360-degree fashion. The margins are the verumontanum distally and the bladder neck proximally. Vaporization is taken to the pseudocapsule of the prostate. Excellent hemostasis is attained. Only the button element is utilized as a resection is contraindicated due to the risk of bleeding. The patient undergoes a vaporization without complications. A 24-Welsh catheter is placed at the end of the procedure, and tape is utilized to place light traction on the prostatic fossa. The disposition of the patient is to the recovery room. JASON FERRER M.D. [id number]
== END 2018-05-21 13:10 | disposition home or self-care (01) ==
LOC: JASU-SURG 07:28
PROVIDERS: ATTEND Urology
PROC: 0V508ZZ Destruction of Prostate, Via Natural or Artificial Opening Endoscopic (ICD-10-PCS; principal; 2018-05-21 09:00)
DX: N40.1 Benign prostatic hyperplasia with lower urinary tract symptoms (principal); N41.1 Chronic prostatitis; N42.1 Congestion and hemorrhage of prostate; I10 Essential (primary) hypertension; D64.9 Anemia, unspecified; E11.9 Type 2 diabetes mellitus without complications
CPT/HCPCS: 94760